=== PATIENT | male | born 1960 | race Caucasian/White ===

== ENCOUNTER → 2018-01-17 | Day surgery (SDC) | payer BC ==
[~2018-01-17] MED LIST: Lactated Ringers 1,000 ML IV SCH
--- NOTE | 2018-01-17 10:56 | OR ---
DATE OF OPERATION: 01/17/2018 PREOPERATIVE DIAGNOSIS: SCREENING COLONOSCOPY. POSTOPERATIVE DIAGNOSIS: SCREENING COLONOSCOPY. SURGEON: Matthew Lucero MD PROCEDURE: FULL-LENGTH COLONOSCOPY. 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 COMPLICATIONS: None. SPECIMEN: None. FINDINGS: Normal full length colonoscopy. RECOMMENDATIONS: Follow up colonoscopy every 10 years. INDICATIONS: Mr. Villaseñor was seen for a physical via his primary provider, who recommended a screening colonoscopy as the patient has never had one. DESCRIPTION OF PROCEDURE: The patient was prepped and draped, placed in the left lateral decubitus position. A lubricated Olympus colonoscope was inserted and easily advanced to the cecum. Direct visualization of the ileocecal valve and appendiceal orifice was accomplished. The bowel prep was adequate. Upon withdrawal, throughout the entire length of the colon, I could find no signs of any polyps, mass, ulceration, or bleeding sites. No vascular abnormalities or signs of colitis. There were no signs of diverticula. The rectal vault was unremarkable. Retroflexion of the scope in the rectum showed no perianal lesions. Air was suctioned. Scope removed without complication. The patient stable in recovery room. TUNDE/RAYMOND /[id number]
== END ==
LOC: CC.SDS 07:03
PROVIDERS: ATTEND Family Medicine
DX: Z12.11 Encounter for screening for malignant neoplasm of colon (principal); N40.0 Benign prostatic hyperplasia without lower urinary tract symptoms; Z88.0 Allergy status to penicillin; Z79.899 Other long term (current) drug therapy
CPT/HCPCS: J7120